=== PATIENT | female | born 1995 | race Two or more races ===

== ENCOUNTER 2017-08-29 21:36 | Emergency (ER) | payer MEDICAID, OTHER ==
[~2017-08-29] VITALS: Ht 165.1 cm; Wt 99.8 kg
[~2017-08-29 21:36] MED LIST: PREN-145 OR
[2017-08-29 21:54] VITALS: BP 112/50
[2017-08-30] MEDS ORDERED: IBUPROFEN 600 MG TAB PO ONE (01:45)
== END 2017-08-30 01:59 | disposition home or self-care (01) ==
LOC: ER 21:36
DX: N39.0 Urinary tract infection, site not specified (principal); M79.1 Myalgia
CPT/HCPCS: 72100

== ENCOUNTER 2020-06-24 20:56 | Emergency (ER) | payer MEDICAID ==
[~2020-06-24] VITALS: Ht 165.1 cm; Wt 102.1 kg
[2020-06-24 21:49] LABS: Urine Bacteria NONE SEEN /hpf (None Seen); Urine Blood Negative /uL (Negative); Urine Mucus FEW (None Seen); Urine Specific Gravity 1.029 (1.001-1.035); Urine WBC 12 /hpf (0 - 5)
[2020-06-24 23:24] VITALS: BP 128/71
[2020-06-24] MEDS ORDERED: KETOROLAC TROMETH 60MG/2ML VIAL IM ONE (23:30)
== END 2020-06-25 01:42 | disposition home or self-care (01) ==
LOC: ER 21:03
DX: S33.5XXA Sprain of ligaments of lumbar spine, initial encounter (principal); W18.39XA Other fall on same level, initial encounter; Y93.89 Activity, other specified; Y92.89 Other specified places as the place of occurrence of the external cause; Y99.8 Other external cause status
CPT/HCPCS: 72100; 81001; 81025; 96372; 99284; J1885

== ENCOUNTER 2021-11-05 03:55 | Emergency (ER) | payer MEDICAID ==
[~2021-11-05] VITALS: Ht 165.1 cm; Wt 55.8 kg
[2021-11-05 05:27] LABS: Urine Bacteria NONE SEEN /hpf (None Seen); Urine Blood 2+ /uL (Negative); Urine Mucus MANY (None Seen); Urine Specific Gravity 1.035 (1.001-1.035); Urine WBC 17 /hpf (0 - 5)
[2021-11-05 07:58] LABS: Basophils # (auto) 0 10 ^3/uL (0-0.2); Basophils % (auto) 0.1 % (0.0-2.0); Eosinophils # (auto) 0 10 ^3/uL (0-0.8); Hematocrit 37.7 % (36.0-46.0); Hemoglobin 12.5 g/dL (12.2-16.2); Lymphocytes # (auto) 0.8 10 ^3/uL (0.4-5.4); Lymphocytes % (auto) 5.3 % (10.0-50.0); Mean Corpuscular Hemoglobin 30.3 pg (28.0-32.0); Mean Corpuscular Hgb Conc. 33.1 g/dL (32.0-36.0); Mean Corpuscular Volume 91.3 fL (80.0-100.0); Monocytes # (auto) 0.5 10 ^3/uL (0-1.3); Monocytes % (auto) 3.6 % (0.0-12.0); Neutrophils # (auto) 13.2 10 ^3/uL (1.6-8.6); Red Blood Cells 4.12 10^6/uL (4.0-5.20); White Blood Cell 14.5 10^3/uL (4.4-10.8)
[2021-11-05 08:28] LABS: Potassium 4.2 mmol/L (3.5-5.1)
[2021-11-05 08:36] LABS: Albumin 3.6 g/dL (3.4-5.0); BUN/Creatinine Ratio 28.8; Bilirubin, Total 1.1 mg/dL (0.2-1.0); Calcium 8.9 mg/dL (8.5-10.1); Total Protein 6.9 g/dL (6.4-8.2)
[2021-11-05] MEDS ORDERED: IOHEXOL 300 MG/ML 100ML BOTTLE IJ ONE (09:02)
[2021-11-05] MEDS ORDERED: HYDROcodone-ACET 5/325MG TAB PO ONE (11:15)
[2021-11-05] MEDS ORDERED: SODIUM CHLORIDE 0.9% 1,000 ML IV ONE (11:15)
[2021-11-05 12:48] LABS: Basophils # (auto) 0 10 ^3/uL (0-0.2); Basophils % (auto) 0.1 % (0.0-2.0); Eosinophils # (auto) 0 10 ^3/uL (0-0.8); Eosinophils % (auto) 0.1 % (0.0-7.0); Hematocrit 34.7 % (36.0-46.0); Hemoglobin 11.4 g/dL (12.2-16.2); Lymphocytes # (auto) 1.7 10 ^3/uL (0.4-5.4); Lymphocytes % (auto) 14.3 % (10.0-50.0); Mean Corpuscular Hemoglobin 29.9 pg (28.0-32.0); Mean Corpuscular Hgb Conc. 32.9 g/dL (32.0-36.0); Mean Corpuscular Volume 90.8 fL (80.0-100.0); Monocytes # (auto) 0.6 10 ^3/uL (0-1.3); Monocytes % (auto) 5.3 % (0.0-12.0); Neutrophils # (auto) 9.8 10 ^3/uL (1.6-8.6); Neutrophils % (auto) 80.2 % (37.0-80.0); Red Blood Cells 3.82 10^6/uL (4.0-5.20); White Blood Cell 12.2 10^3/uL (4.4-10.8)
[2021-11-05 14:09] LABS: Basophils # (auto) 0 10 ^3/uL (0-0.2); Basophils % (auto) 0.1 % (0.0-2.0); Eosinophils # (auto) 0 10 ^3/uL (0-0.8); Eosinophils % (auto) 0.4 % (0.0-7.0); Hematocrit 32.9 % (36.0-46.0); Hemoglobin 11.4 g/dL (12.2-16.2); Lymphocytes # (auto) 2.1 10 ^3/uL (0.4-5.4); Lymphocytes % (auto) 17.7 % (10.0-50.0); Mean Corpuscular Hgb Conc. 34.5 g/dL (32.0-36.0); Mean Corpuscular Volume 89.9 fL (80.0-100.0); Monocytes # (auto) 0.7 10 ^3/uL (0-1.3); Monocytes % (auto) 5.7 % (0.0-12.0); Neutrophils % (auto) 76.1 % (37.0-80.0); Red Blood Cells 3.66 10^6/uL (4.0-5.20); Red Cell Distribution Width 13.2 % (11.8-14.3); White Blood Cell 11.8 10^3/uL (4.4-10.8)
[2021-11-05 15:09] VITALS: BP 98/45
[2021-11-05] MEDS ORDERED: CEPH-322 PO (15:09)
== END 2021-11-05 15:10 | disposition left against medical advice (07) ==
LOC: ER 03:55
DX: N39.0 Urinary tract infection, site not specified (principal); D72.829 Elevated white blood cell count, unspecified; Z32.02 Encounter for pregnancy test, result negative
CPT/HCPCS: 36415; 74177; 76856; 80053; 81001; 81025; 83690; 84702; 85025; 93005; 96360; 99285; J7030; Q9967

== ENCOUNTER 2023-10-31 18:45 | Emergency (ER) | payer MEDICAID ==
[~2023-10-31 18:45] MED LIST changes: +CEPH250C PO
== END 2023-10-31 19:50 | disposition left against medical advice (07) ==
LOC: ER 18:45
DX: R10.9 Unspecified abdominal pain (principal); Z53.21 Procedure and treatment not carried out due to patient leaving prior to being seen by health care provider

== ENCOUNTER 2024-09-18 13:36 | Observation (INO) | payer MEDICAID ==
[~2024-09-18] VITALS: Ht 165.1 cm; Wt 76.2 kg
--- NOTE | 2024-09-18 14:59 | DVHDS2 ---
Physician Discharge Progress N Final Diagnosis: IUP 37+ wk, false labor Operations or Procedures: Operations or Procedures NST reactive, category 1, Labor check, not in labor Condition on Discharge: Stable Disposition: Home Discharge Instructions: Diet: Regular Activity: Light activity Follow Up/Referral: PRN Medications: N/A Follow Up Care: Discharge Statement: "Patient was advised to return to the ER or call 911 if any headaches, dizziness, shortness of breath, chest pain, abdominal pain, bleeding, fevers, or worsening of medical condition. Patient was counseled about treatment plan, medications, possible side effects, patientverbalized understanding. All questions were answered to the best of my ability. This discharge took greater then 30 minutes in planning, reviewing documentation, counseling the patient, and discussing with other team members." HARSHIL MIRELES DO Sep 18, 2024 14:59
== END 2024-09-18 14:35 | disposition home or self-care (01) ==
LOC: LDRP 13:36 → UNDOADMOB 13:36 → LDRP 13:49 → UNDODISOB 14:35
PROVIDERS: ADMIT Obstetrics & Gynecology; ATTEND Obstetrics & Gynecology
DX: O47.1 False labor at or after 37 completed weeks of gestation (principal); Z3A.37 37 weeks gestation of pregnancy; Z79.899 Other long term (current) drug therapy
CPT/HCPCS: 59025; 81002; 94760; G0378